=== PATIENT | male | born 1985 | race Caucasian/White ===

== ENCOUNTER 2024-05-16 09:21 | Emergency (ER) | payer OTHER, SELFPAY ==
--- NOTE | ~2024-05-16 | XR_ITS ---
EXAMINATION: XR chest 2V DATE: 05/16/2024 09:42 INDICATION: Chest discomfort with inspiration. TECHNIQUE: Frontal and lateral views of the chest were obtained. COMPARISON: None. FINDINGS: There is no pneumonia, pleural effusion, or pneumothorax. The heart size is normal. IMPRESSION: 1. No acute cardiopulmonary disease. Reviewed, dictated and finalized at location A.
--- NOTE | 2024-05-16 09:25 | ED.BACK ---
HPI - Back Pain/Injury General Chief Complaint: Back Pain/Injury Stated Complaint: CHEST/BACK TIGHTNESS Time Seen by Provider: 05/16/24 09:25 Source: patient Mode of arrival: ambulatory Limitations: no limitations History of Present Illness HPI Narrative: Rickie is a 38 y/o male who presents with complaints of right sided chest pain and back pain x3 days. He states he was lifting weights and felt a twinge in his right chest and upper back near his shoulder blade. He describes the pain as a tense, pulling sensation that is worse with movement and rates it a 6/10 at its worse. The chest pain does not radiate to his jaw or arms. He also states 2 nights ago he experienced an episode of excessive sweating while laying in bed but was not having any chest or back pain at that time. He states he has a paternal family history of heart disease. He denies any history of smoking, hypertension, or hyperlipidemia. He denies any associated shortness of breath, palpitations, nausea, or vomiting. Related Data Allergies Allergy/AdvReac Type Severity Reaction Status Date / Time No Known Allergies Allergy Verified 05/16/24 09:29 Review of Systems Review of Systems: Pertinent positives per HPI. Patient denies any fever, chills, rash, headache, visual changes, dizziness, cough, runny nose, sore throat, shortness of breath, palpitations, nausea, vomiting, diarrhea, constipation, abdominal pain, or any urinary issues. [facility] Family History Family History (Updated 05/16/24 @ 09:51 by Narayan York APRN) Father Acute myocardial infarction Cerebrovascular accident Heart disease Social History Social History (Updated 05/16/24 @ 09:52 by Narayan York APRN) Smoking status: Never smoker Comments At the time of my signature, I reviewed and agree with the nursing past medical, surgical, social, and family history. There is no relevant family history pertinent to the patient complaint. Exam Narrative: General: Well-developed, well nourished, in no apparent distress Head: Normocephalic, atraumatic. Cardio: Regular rate and rhythm, s1 and s2 normal, no murmur appreciated. Resp: Clear to auscultation bilaterally, no rhonchi, rales, wheezing or rubs. Extremities: No deformity, no edema, no cyanosis, capillary refill less than 2 seconds, peripheral pulses palpable and strong. Integumentary: [place], warm, and dry, intact without lesion, no rashes. Musculoskeletal: No deformity, right medial scapular border tender to palpation, grossly normal range of motion, muscle strength strong and equal, peripheral pulse strong, no edema, no cyanosis, normal gait and station. Course Course Emergency Course: Portions of this record may have been created with voice recognition software. Level of Care: Express Care Visit Vital Signs Vital signs: Vital signs reviewed MDM - Back Pain/Injury MDM Narrative Medical decision making narrative: At the time of visit patient is resting comfortably on the exam table. Patient appears to be nontoxic. EKG: Shows sinus rhythm with heart rate of 70 beats per minute without ST elevation, depression, or T-wave inversion. Diagnostics: Chest x-rays negative for any acute cardiopulmonary process. Plan: I suspect patient has back muscle strain to the thoracic back near the scapular border. Supportive measures were discussed with the patient and they voiced understanding discharge instructions and agrees to treatment plan. Return precautions reviewed Differential Diagnosis Differential diagnosis: Likely strain of lumbar region, thoracic back pain and other (Muscle strain, non STEMI, STEMI, atypical chest pain, costochondritis) Imaging Data Radiologist's impression: ITS Impressions Chest X-Ray 05/16/24 09:51 IMPRESSION: 1. No acute cardiopulmonary disease. ECG Data EKG #1: Attestation: I personally reviewed and interpreted this ECG as follows: ECG completion da
--- NOTE | 2024-05-16 09:35 | ECG_ITS ---
Test Date: 2024-05-16 09:47:02 Measurements Intervals [place] Rate: 70 P: 14 [place]: 165 QRS: 27 QRSD: 94 T: 49 QT: 339 QTc: 366 Interpretive Statements SINUS RHYTHM WITHIN NORMAL LIMITS No previous ECG available for comparison Electronically Signed On 05-16-2024 11:35:42 CDT by Dain Lowe M.D.
[2024-05-16 09:54] VITALS: BP 158/100; PULSE 80; RESP 16; TEMP 36; O2SAT 100
== END 2024-05-16 10:04 | disposition home or self-care (01) ==
PROVIDERS: Emergency Provider Nurse Practitioner Family; PCP Hospitalist
DX: S29.012A Strain of muscle and tendon of back wall of thorax, initial encounter (principal); X50.3XXA Overexertion from repetitive movements, initial encounter
CPT/HCPCS: 71046; 93005; 99203; G0463

== ENCOUNTER 2024-12-24 08:55 | Outpatient (CLI) | payer OTHER, SELFPAY ==
--- NOTE | ~2024-12-24 | MR_ITS ---
MRI of the left ankle Clinical history: Pain Technique: Coronal proton-density and proton-density fat-sat images, axial proton-density and proton- density fat-sat images, and sagittal proton-density and proton-density fat-sat images were acquired. Findings: Syndesmotic ligaments are intact. Anterior and posterior talofibular ligaments, and calcane ofibular ligament are intact. Deltoid ligament is intact. Medial flexor tendons, peroneal tendons, anterior extensor tendons, and Achilles tendon are intact. No osteochondral lesion of the talar dome. Bone marrow signals and joint spaces are intact. Plantar f ascia is intact with minimal thickening proximally. No soft tissue mass or fluid collection. There is probable minimal edema in the sinus Tarsi. 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 Correlate clinically. No other significant findings. Reviewed, dictated and finalized at [facility]. 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 Correlate clinically. No other significant findings.
== END 2024-12-24 08:56 | disposition home or self-care (01) ==
PROVIDERS: PCP Family Medicine Sports Medicine; Visit Provider Family Medicine Sports Medicine
DX: M25.372 Other instability, left ankle (principal)
CPT/HCPCS: 73721